=== PATIENT | female | born 1940 | race Caucasian/White ===

== ENCOUNTER → 2016-04-29 | Outpatient (REF) | payer MEDICARE ==
[2016-04-29 18:01] LABS: ALBUMIN 3.9 GM/DL (3.2-5.2); ALBUMIN/GLOBULIN RATIO 1.34 (1.00-1.93); ALKALINE PHOSPHATASE 142 U/L (45-117); ALT/SGPT 42 U/L (12-78); ANION GAP 10 MEQ/L (8-16); AST/SGOT 27 U/L (15-37); BASO % 0.5 % (0.0-1.0); BILIRUBIN,TOTAL 0.4 MG/DL (0.2-1.0); BLOOD UREA NITROGEN 20 MG/DL (7-18); CALCIUM LEVEL 10.9 MG/DL (8.8-10.2); CARBON DIOXIDE LEVEL 27 MEQ/L (21-32); CHLORIDE LEVEL 108 MEQ/L (98-107); EOS # 0.2 K/mm3 (0.0-0.50); EOS % 3.1 % (0.0-3.0); FREE T4 1.04 NG/DL (0.76-1.46); GLOMERULAR FILTRATION RATE > 60.0 (>39); GLUCOSE, FASTING 106 MG/DL (83-110); LARGE UNSTAINED CELL # 0.1 K/mm3 (0.0-0.4); LARGE UNSTAINED CELL % 1.7 % (0.0-4.0); LYMPH # 1.7 K/mm3 (1.5-4.5); LYMPH % 20.6 % (24.0-44.0); MEAN CORPUSCULAR HEMOGLOBIN 30.6 pg (27.0-33.0); MEAN CORPUSCULAR HGB CONC 33.6 g/dl (32.0-36.5); MEAN CORPUSCULAR VOLUME 91.2 fl (80.0-96.0); MONO # 0.6 K/mm3 (0.0-0.8); MONO % 6.6 % (0.0-5.0); NEUTROPHILS # 5.6 K/mm3 (1.8-7.7); NEUTROPHILS % 67.6 % (36.0-66.0); PLATELET COUNT, AUTOMATED 209 k/mm3 (150-450); POTASSIUM SERUM 4.2 MEQ/L (3.5-5.1); RED CELL DISTRIBUTION WIDTH 12.6 % (11.5-14.5); SODIUM LEVEL 145 MEQ/L (136-145); TOTAL PROTEIN 6.8 GM/DL (6.4-8.2); WHITE BLOOD COUNT 8.3 K/mm3 (4.0-10.0)
== END ==
LOC: M SFHCPLAZ 15:38
PROVIDERS: ATTEND Nurse Practitioner Family
DX: R10.11 Right upper quadrant pain (principal); K59.00 Constipation, unspecified
CPT/HCPCS: 36415; 80053; 84439; 84443; 85025; 86301; G0463

== ENCOUNTER → 2016-04-30 | Outpatient (CLI) | payer MEDICARE ==
--- NOTE | 2016-04-30 10:24 | REP ---
Abdominal right upper quadrant ultrasound: There are no comparison studies. There is no cholelithiasis, gallbladder wall thickening, or pericholecystic fluid. There is no intrahepatic or extrahepatic biliary duct dilatation and the common duct is long 0.2 mm in diameter. There are least to six nodular densities in the liver, some of these are along the anterior capsule and are slightly exophytic. These are nonspecific as there are no comparison studies to document stability, however, the multiplicity of lesions raises the suspicion of metastatic disease. Hepatic MRI might be considered for further evaluation. There is a hypoechoic mass in the body of the pancreas measuring up to 4.5 cm. Consider pancreatic MRI for further evaluation. There is no right renal calculus, hydronephrosis, cyst or mass. The right kidney is normal size 9.1 cm in craniocaudad length. Impression: There is a hypoechoic mass in the body of the pancreas measuring up to 4.5 cm. Consider pancreatic MRI for follow up. There are multiple liver nodules, at least six. Primary diagnostic consideration is metastatic disease. Consider hepatic MRI. Given the multiplicity of findings, also consider PET / CT scan.
== END ==
LOC: M WHC 08:37
PROVIDERS: ATTEND Nurse Practitioner Family
DX: K86.89 Other specified diseases of pancreas (principal); K76.9 Liver disease, unspecified
CPT/HCPCS: 76705; G0463

== ENCOUNTER → 2016-05-04 | Outpatient (CLI) | payer MEDICARE ==
--- NOTE | 2016-05-04 15:37 | REP ---
MR ABDOMEN WITH AND WITHOUT CONTRAST: TECHNIQUE: Coronal T2, T2 FS, axial T1, T2, T2 FS, in phase, out of phase, T1 FS, dynamic post IV gadolinium axial T1 FS with the intravenous administration of 17 mL gadolinium. There are multiple innumerable liver lesions present which are hypointense on T1 and heterogeneous hyperintense on T2. They all demonstrate ring enhancement and are compatible with metastatic lesions throughout the liver. The spleen is normal in size without no intrinsic abnormality. The adrenal glands are unremarkable. There is a large mass in the body of the pancreas. The mass is heterogeneously low in signal on T1-weighted images. A portion is heterogeneously high in signal on T2-weighted images. There is heterogeneous enhancement with a cystic component on the left side of the mass which does not significantly enhance. There is dilatation of the pancreatic duct in the region of the tail of the pancreas. There appear to be tiny cysts in both kidneys without hydronephrosis. I see no significant adenopathy in the abdomen. I see no free fluid. IMPRESSION: Large mass in the body of the pancreas demonstrates heterogeneous enhancement and there is dilatation of the pancreatic duct in the region of the tail of the pancreas. There are multiple metastatic lesions seen throughout the liver. The largest lesions are clustered in the left lobe at the superior aspect of the liver, with the largest discrete lesion measuring 4.3 cm in diameter. Signed by Car Fernandes MD 05/05/2016 09:25 A
== END ==
LOC: M RAD 13:49
PROVIDERS: ATTEND Nurse Practitioner Family
DX: K86.9 Disease of pancreas, unspecified (principal); K76.89 Other specified diseases of liver
CPT/HCPCS: 74183; A9576

== ENCOUNTER → 2016-05-25 | Outpatient (REF) | payer MEDICARE ==
[~2016-05-25] MED LIST: ALEV220T26 PO; ASPI1TAB PO; CALC600T57 PO; COPP2TAB PO; FLAX100012 PO; FLON1SPR; LUTE20TA PO; METACAP2 PO; OMEP40CA2 PO; PRAV40TA PO; TOPR25TA PO; VITA500S3 SL; ZINCLOZ9 PO; ZOLO50TA PO
[2016-05-25 14:24] LABS: INR 0.93
== END ==
LOC: M LAB REF 12:47
PROVIDERS: ATTEND Internal Medicine Medical Oncology
DX: C25.9 Malignant neoplasm of pancreas, unspecified (principal); Z79.01 Long term (current) use of anticoagulants

== ENCOUNTER → 2016-05-27 | Day surgery (SDC) | payer MEDICARE ==
[~2016-05-27] MED LIST changes: +BUPIVACAINE LIPOSOME/PF 1.3% 20 ML VIAL (13.3MG/ML)(EXPAREL) As Ordered ONE; +HEPARIN SOD (PORCINE) 5000 UNITS/ML VIAL As Ordered ONE; +LIDOCAINE 1% MDV 20ML VIAL As Ordered ONE; +MIDAZOLAM INJ 2 MG/2 ML VIAL (J2250) As Ordered ONE; +MUPIROCIN 2% OINT 22 GM TUBE TOP ONE; +PROPOFOL 200 MG/20 ML VIAL As Ordered ONE; +VANCOMYCIN HCL 1,000 MG, VIAL MATE ADAPTER 1 EACH in D5W 250 ML IV ONE; +fentaNYL 100 MCG/2 ML INJECTION (J3010) As Ordered ONE
[2016-05-27 15:15] VITALS: BP 150/74
--- NOTE | 2016-05-27 15:26 | REP ---
Chest x-ray: Two Sitting AP views. History: Postop. Comparison chest x-ray April 27, 2007. Findings: There is a left subclavian vein Xvndwg-R-Aeyu catheter with its tip in the expected location of the superior vena cava. The lungs are well inflated and clear. There is no evidence of pneumothorax or hydrothorax. Heart size is normal. Impression: Left subclavian Dgttjb-A-Gyot catheter in place. No complication is identified. Signed by Casa Sharma MD 05/27/2016 03:18 P
--- NOTE | 2016-05-27 16:07 | REP ---
Chest x-ray: Partial study two views:. History: Abnormal x-ray. Findings: A sequence of two fluoroscopically obtained last image hold spot radiographs of the chest document Ptqwvs-D-Szxk catheter placement. 41 seconds of fluoroscopy time is reported. Signed by Casa Sharma MD 05/27/2016 05:45 P
--- NOTE | 2016-05-27 17:03 | ECGEPIP ---
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
--- NOTE | 2016-05-28 12:26 | RO ---
DATE OF PROCEDURE: 05/27/2016 PREPROCEDURE DIAGNOSIS: Pancreatic cancer, need for vascular access for chemotherapy. POSTPROCEDURE DIAGNOSIS: Pancreatic cancer, need for vascular access for chemotherapy. PROCEDURE: Insertion of left infraclavicular Mffcsp-O-Msnz. SURGEON: Dr. Betito Luna. EMPLOYEE RELATIONS ADVISOR: ANESTHESIA: ESTIMATED BLOOD LOSS: FINDINGS: All contours were all smooth. The catheter was placed at the junction of the SVC and right atrium. It did take two Evukkl-T-Hzvd packs to finish the procedure as during the suturing of the first Vjzovy-O-Rkeg, the catheter pulled back significantly so that I was concerned that because of her obesity that she would pull the catheter out once the breast was dependent. Therefore, we threaded the catheter and did another tunnel and finally put the port in. PROCEDURE: Under satisfactory MAC anesthesia, the patient was prepped and draped in usual sterile fashion. The left infraclavicular fossa was located and infiltrated with 1% Xylocaine. The subclavian vein was found on the first pass and a wire was placed and its position confirmed with fluoroscopic control. An incision was made approximately 2 cm below the catheter site incision and a subcutaneous pocket was developed both with sharp and blunt dissection including electrocautery. She was very, very obese with fatty tissue which seemed much more greasy than normal. The catheter port was incised and tract was dilated and a catheter was placed at the superior vena cava right atrial junction. A tunnel was then created and the catheter was cut to appropriate size, collar placed and connected to the Aykshe-G-Zkut. Qofzwv-B-Ulpr was then attempted to be sutured into the pocket. Because of the adipose tissue, it was proved to be rather difficult and during attempted suturing and anchoring, the catheter pulled out approximately two inches. X-ray control of the catheter placement showed it to be at the junction of the innominate vein and the SVC. I was very concerned that once the breast was dependent, that even if I placed the port and sutured it in, that it would pull out. Therefore, the catheter was removed from the port, the port was also removed and brought back through the original catheter incision. A wire was placed through it and another catheter was placed under fluoroscopic control. This too was placed at the junction of the right atrium and SVC. Again a tunnel was created and the catheter pulled through. This again was connected to the port after placing a collar and the port was anchored with two #2-0 silk sutures. Final pictures showed all contours to be smooth with the catheter in the proper position. The catheter was flushed with heparinized saline and with a final flush of saline of 100 units/mL. The subcutaneous tissue was then closed with running #3-0 Vicryl suture and the skin was closed with running #4-0 Monocryl subcuticular suture. The patient tolerated the procedure well and left the operating room in satisfactory position to the recovery room. YAYA
== END | disposition home or self-care (01) ==
LOC: M SDC 10:51
PROVIDERS: ATTEND Thoracic Surgery (Cardiothoracic Vascular Surgery)
DX: C25.9 Malignant neoplasm of pancreas, unspecified (principal); E78.00 Pure hypercholesterolemia, unspecified; E78.5 Hyperlipidemia, unspecified; I10 Essential (primary) hypertension; K21.9 Gastro-esophageal reflux disease without esophagitis; Z88.0 Allergy status to penicillin; Z88.2 Allergy status to sulfonamides; Z88.5 Allergy status to narcotic agent; Z88.8 Allergy status to other drugs, medicaments and biological substances; Z79.899 Other long term (current) drug therapy
CPT/HCPCS: 36415; 36561; 71010; 76000; 81001; 86850; 86900; 86901; 93005; C1788; J2250; J3010; J3370

== ENCOUNTER → 2016-06-04 | Outpatient (CLI) | payer MEDICARE ==
[~2016-06-04] MED LIST changes: -BUPIVACAINE LIPOSOME/PF 1.3% 20 ML VIAL (13.3MG/ML)(EXPAREL) As Ordered ONE; -HEPARIN SOD (PORCINE) 5000 UNITS/ML VIAL As Ordered ONE; -LIDOCAINE 1% MDV 20ML VIAL As Ordered ONE; -MIDAZOLAM INJ 2 MG/2 ML VIAL (J2250) As Ordered ONE; -MUPIROCIN 2% OINT 22 GM TUBE TOP ONE; -PROPOFOL 200 MG/20 ML VIAL As Ordered ONE; -VANCOMYCIN HCL 1,000 MG, VIAL MATE ADAPTER 1 EACH in D5W 250 ML IV ONE; -fentaNYL 100 MCG/2 ML INJECTION (J3010) As Ordered ONE
--- NOTE | 2016-06-04 15:29 | REP ---
PA and lateral chest: Comparisons are 05/27/2016 and 04/27/2007. There is an incomplete inspiratory effort. The lung woodall are clear. Cardiac size is normal. The yadira, mediastinum, and bony thorax are unremarkable. There is a right IJ Ehyfln-J-Bonr catheter with the tip at the confluence of the superior vena cava and innominate vein in satisfactory location, unchanged from 05/27/2016. Impression: There are no acute cardiopulmonary findings. No masses. Signed by Car Resendiz MD 06/04/2016 03:20 P
== END ==
LOC: M SMT 12:56
PROVIDERS: ATTEND Thoracic Surgery (Cardiothoracic Vascular Surgery)
DX: C25.3 Malignant neoplasm of pancreatic duct (principal); Z01.818 Encounter for other preprocedural examination

== ENCOUNTER → 2016-06-29 | Outpatient (REF) | payer MEDICARE | LOC: M LAB REF 12:55 | PROVIDERS: ATTEND Internal Medicine Medical Oncology | DX: C25.9 Malignant neoplasm of pancreas, unspecified (principal) ==

== ENCOUNTER → 2016-07-28 | Outpatient (CLI) | payer MEDICARE ==
[~2016-07-28] MED LIST changes: +ISOVUE-370 76% 100ML VIAL (Q9967) As Ordered ONE
--- NOTE | 2016-07-28 11:02 | REP ---
CT ANGIOGRAM OF THE CHEST: TECHNIQUE: Axial contrast enhanced images from the thoracic inlet to the upper abdomen using 100 mL Isovue 370 intravenous contrast material with multiplanar reformations. There is no CT evidence of a pulmonary embolism. Mild scattered atherosclerotic calcifications are seen of the thoracic aorta. There is no aneurysm or dissection. Normal sized mediastinal and hilar lymph nodes are present. There is no pleural or pericardial effusion. Patchy scattered infiltrates are seen throughout both lungs. In the visualized portions of the upper abdomen there are multiple liver nodules present compatible with metastases. A mass is again seen in the body of the pancreas. IMPRESSION: No CT evidence of pulmonary embolism. No pleural or pericardial effusion. Patchy infiltrates scattered throughout both lungs. Signed by Car Fernandes MD 07/28/2016 04:07 P
== END ==
LOC: M RAD 09:59
PROVIDERS: ATTEND Nurse Practitioner Family
DX: R06.00 Dyspnea, unspecified (principal); C25.9 Malignant neoplasm of pancreas, unspecified; R91.8 Other nonspecific abnormal finding of lung field
CPT/HCPCS: 71275; 86301; Q9967

== ENCOUNTER → 2016-07-28 | Outpatient (REF) | payer MEDICARE ==
[~2016-07-28] MED LIST changes: -ISOVUE-370 76% 100ML VIAL (Q9967) As Ordered ONE
== END ==
LOC: M LAB REF 13:30
PROVIDERS: ATTEND Internal Medicine Medical Oncology
DX: C25.9 Malignant neoplasm of pancreas, unspecified (principal)

== ENCOUNTER → 2016-08-11 | Outpatient (REF) | payer MEDICARE | LOC: M LAB REF 12:32 | PROVIDERS: ATTEND Internal Medicine Medical Oncology | DX: C25.9 Malignant neoplasm of pancreas, unspecified (principal) ==

== ENCOUNTER → 2016-08-25 | Outpatient (REF) | payer MEDICARE | LOC: M LAB REF 13:07 | PROVIDERS: ATTEND Internal Medicine Medical Oncology | DX: C25.9 Malignant neoplasm of pancreas, unspecified (principal) ==

== ENCOUNTER → 2016-09-08 | Outpatient (REF) | payer MEDICARE | LOC: M LAB REF 12:32 | PROVIDERS: ATTEND Internal Medicine Medical Oncology | DX: C25.9 Malignant neoplasm of pancreas, unspecified (principal) ==

== ENCOUNTER → 2016-09-21 | Outpatient (REF) | payer MEDICARE | LOC: M LAB REF 12:29 | PROVIDERS: ATTEND Internal Medicine Medical Oncology | DX: C25.1 Malignant neoplasm of body of pancreas (principal) ==

== ENCOUNTER → 2016-10-12 | Outpatient (CLI) | payer MEDICARE ==
[~2016-10-12] MED LIST changes: +GASTROGRAFIN SOLUTION 30ML (Q9963) As Ordered ONE; +ISOVUE-370 76% 100ML VIAL (Q9967) As Ordered ONE
--- NOTE | 2016-10-12 16:43 | REP ---
REASON: History of pancreatic carcinoma. COMPARISON: 07/28/2016. CONTRAST: 100 mL Isovue-370. The mediastinal and pulmonary yadira are unchanged. There is no mass or adenopathy. There are no pleural or pericardial effusions. The imaged upper abdomen again shows a pancreatic mass. A few low density areas are suspected in the hepatic parenchyma difficulty to evaluate on this chest CT. Lung window technique throughout the exam shows no change in appearance of the osseous structures. Evaluation of the lung woodall show an asymmetric somewhat spiculated 9 mm sized nodule in the right upper lobe previously masked by patchy opacities throughout the lung woodall. The aforementioned opacities have resolved which has enabled this lesion to be brought to light. There is an unchanged pneumatocele in the inferior lingula. A few scattered fibrotic changes are suspected throughout the lung woodall. Status quo. IMPRESSION:1. Asymmetric somewhat spiculated right upper lobe lung nodule as described above. A metastatic lesion can not be ruled out. 2. Chronic lung field changes but with some improvement from the prior exam as described above. 3. Known pancreatic mass again imaged on this chest CT. 4. Possible hepatic metastatic disease. 5. Other findings as described above. Signed by Ramy Rod DO 10/12/2016 07:09 P
--- NOTE | 2016-10-12 17:16 | REP ---
HISTORY: Pancreatic mass. COMPARISON: None. CONTRAST: 100 mL Isovue-370. The precontrast enhanced portion of the examination shows a few low density lesions in the hepatic parenchyma, particularly in the lateral segment of the left lobe. There is no nephroureterolithiasis. There are no choleliths. The contrast-enhanced portion of the examination shows potentially subtly peripherally enhancing lesions in the lateral segment of the left lobe of the liver in an area very difficult to evaluate by CT due to volume averaging. The largest measures approximately 1.6 cm. A third tiny focal area of low density is seen in the posterior segment of the right lobe with possible slight peripheral enhancement. The gallbladder is unremarkable. The spleen is within normal limits. The adrenal glands are universally mildly thickened. There are no enhancing renal lesions. The abdominal aorta and paraaortic regions are within normal limits. In the pancreatic body, there is a mildly peripherally enhancing mass which measures 2 cm and seen with proximal ductal dilatation in the pancreatic tail region. There is no evidence of peripancreatic adenopathy. There is no free fluid or free air in the abdomen. The bowel loops are within normal limits. CT PELVIS: The bowel loops are within normal limits. There is no free fluid or free air. There is no pelvic adenopathy. A potential mass is seen arising from the uterine body, possibly related to uterine myomatous change. This cannot be well evaluated by CT. Bone window technique throughout the exam shows spinal degenerative changes. IMPRESSION: 1. There is a pancreatic mass with the related findings as described above. 2. Lesions in the liver as described above. Early metastatic disease cannot be ruled out. Followup with gadolinium enhanced hepatic MRI is recommended. 3. Chronic appearing adrenal gland thickening. 4. Possible uterine myomatous change. Correlate with pelvic ultrasonography. 5. Other findings as described above. Signed by Ramy Rod DO 10/12/2016 07:09 P
== END ==
LOC: M RAD 13:27
PROVIDERS: ATTEND Internal Medicine Medical Oncology
DX: C25.9 Malignant neoplasm of pancreas, unspecified (principal); K76.9 Liver disease, unspecified
CPT/HCPCS: 71260; 74178; Q9963; Q9967

== ENCOUNTER → 2016-10-19 | Outpatient (REF) | payer MEDICARE ==
[~2016-10-19] MED LIST changes: -GASTROGRAFIN SOLUTION 30ML (Q9963) As Ordered ONE; -ISOVUE-370 76% 100ML VIAL (Q9967) As Ordered ONE
== END ==
LOC: M LAB REF 13:24
PROVIDERS: ATTEND Internal Medicine Medical Oncology
DX: C25.9 Malignant neoplasm of pancreas, unspecified (principal)

== ENCOUNTER → 2016-11-16 | Outpatient (REF) | payer MEDICARE | LOC: M LAB REF 09:49 | PROVIDERS: ATTEND Internal Medicine Medical Oncology | DX: C25.9 Malignant neoplasm of pancreas, unspecified (principal) ==

== ENCOUNTER → 2016-11-26 | Outpatient (CLI) | payer MEDICARE ==
[~2016-11-26] MED LIST changes: +GASTROGRAFIN SOLUTION 30ML (Q9963) As Ordered ONE; +ISOVUE-370 76% 100ML VIAL (Q9967) As Ordered ONE
--- NOTE | 2016-11-30 09:11 | REP ---
Clinical: Pancreatic cancer with rising tumor markers. Technique: Axial contrast enhanced images from the thoracic inlet to the upper abdomen using 100 ml Isovue 370 intravenous contrast material with coronal and sagittal re-formations. Comparison: 07/28/2016. Findings: The bilateral lung woodall are well-aerated and few, small ill-defined areas of density are scattered throughout the bilateral hemithoraces including 13 mm density in the medial right upper lobe inseparable from the mediastinum (image 35). In comparison to prior examination these findings may represent sequelae of prior multifocal pneumonic process and warrant reevaluation to assess for resolution versus possible metastatic foci. No pleural effusion. No pneumothorax. Mediastinum demonstrates atherosclerotic changes to the thoracic aorta and coronary arteries without aortic dissection or cardiomegaly and no pericardial effusion. No obvious adenopathy appreciated. Surrounding musculoskeletal structures are normal. Limited evaluation of the upper abdomen continues to demonstrate multiple hepatic lesions including large hypodense lesion in the left lobe of the liver. Small hiatal hernia is identified. Impression: 1. Small scattered noncalcified densities measure up to 13 mm. Findings may represent sequelae of prior multifocal pneumonia versus metastatic disease. Continued follow-up in 3 months may be warranted. 2. No adenopathy or effusion. 3. Atherosclerotic changes to the thoracic aorta and coronary arteries. 4. Upper abdomen demonstrates scattered low density changes throughout the liver similar to 07/28/2016 and consistent with metastatic disease. Signed by Huang Sweeney MD 11/30/2016 09:02 A
--- NOTE | 2016-11-30 09:30 | REP ---
Clinical: Pancreatic cancer with rising tumor markers. Technique: Axial contrast enhanced images from the lung bases to the pubic symphysis using oral and 100 ml Isovue 370 intravenous contrast material with precontrast and delayed images of the abdomen as well as coronal and sagittal re-formations. Comparison: 10/12/2016. Findings: Lung bases demonstrate a 2.5 cm bulla in the lingula as well as 2 mm subpleural noncalcified nodule in the periphery of the right lower lobe (image 1). Visualized portions of the heart and pericardium are normal. The liver demonstrates increased size and multiple new ill-defined hypodense areas within the left lobe of the liver measuring roughly up to 4 cm diameter as well as few new hypodense lesions in the left lobe measuring roughly up to 1.9 cm. The low density lesion within the mid body of the pancreas remains relatively unchanged and measures approximately 2 cm maximal diameter. Spleen, collapsed gallbladder, bilateral adrenal glands and kidneys are normal / stable. The enteric system is without obstruction or acute inflammatory process and a normal terminal ileum and appendix are identified in the right lower quadrant. Pelvis demonstrates normal bladder and heterogeneous enlarged appearance to the uterus which is similar to prior examination and may reflect mass or exophytic fibroid measuring 5 cm maximal diameter inseparable from the anterior fundal region. No ascites. No obvious significant adenopathy. No free air. Atherosclerotic changes to the vasculature without aneurysm or dissection. Musculoskeletal structures demonstrate degenerative changes without focal osseous abnormality. Impression: 1. Low density pancreatic lesion is essentially unchanged. 2. Discrete and somewhat heterogeneous infiltrating lesions within the left lobe of the liver as well as scattered hyperdense subtle lesions in the right lobe appear increased from prior examination. 3. Pelvic mass may represent exophytic uterine fibroid and warrants pelvic ultrasound correlation. Signed by Huang Sweeney MD 11/30/2016 09:22 A
== END ==
LOC: M RAD 16:16
PROVIDERS: ATTEND Nurse Practitioner Family
DX: C25.9 Malignant neoplasm of pancreas, unspecified (principal)
CPT/HCPCS: 71260; 74178; Q9963; Q9967

== ENCOUNTER → 2016-12-08 | Outpatient (REF) | payer MEDICARE ==
[~2016-12-08] MED LIST changes: -GASTROGRAFIN SOLUTION 30ML (Q9963) As Ordered ONE; -ISOVUE-370 76% 100ML VIAL (Q9967) As Ordered ONE
== END ==
LOC: M LAB REF 17:24
PROVIDERS: ATTEND Internal Medicine Medical Oncology
DX: C25.9 Malignant neoplasm of pancreas, unspecified (principal)

== ENCOUNTER → 2016-12-22 | Outpatient (REF) | payer MEDICARE | LOC: M LAB REF 14:34 | PROVIDERS: ATTEND Internal Medicine Medical Oncology | DX: C25.9 Malignant neoplasm of pancreas, unspecified (principal) ==

== ENCOUNTER → 2017-01-12 | Outpatient (REF) | payer MEDICARE | LOC: M LAB REF 16:36 | PROVIDERS: ATTEND Internal Medicine Medical Oncology | DX: C25.9 Malignant neoplasm of pancreas, unspecified (principal) ==

== ENCOUNTER → 2017-02-04 | Outpatient (REF) | payer MEDICARE ==
[2017-02-04 12:29] LABS: FOLATE 8.3 NG/ML; VITAMIN B12 LEVEL > 2000 PG/ML
[2017-02-04 12:32] LABS: ALBUMIN 3.7 GM/DL (3.2-5.2); ALBUMIN/GLOBULIN RATIO 1.37 (1.00-1.93); ALKALINE PHOSPHATASE 138 U/L (45-117); ALT/SGPT 31 U/L (12-78); ANION GAP 8 MEQ/L (8-16); AST/SGOT 22 U/L (7-37); BILIRUBIN,TOTAL 0.6 MG/DL (0.2-1.0); BLOOD UREA NITROGEN 25 MG/DL (7-18); CALCIUM LEVEL 9.2 MG/DL (8.8-10.2); CARBON DIOXIDE LEVEL 28 MEQ/L (21-32); CHLORIDE LEVEL 106 MEQ/L (98-107); CHOLESTEROL LEVEL 215 MG/DL (<200); CREATININE FOR GFR 0.78 MG/DL (0.55-1.02); FREE T4 1.02 NG/DL (0.76-1.46); GLOMERULAR FILTRATION RATE > 60.0 (>39); GLUCOSE, FASTING 70 MG/DL (83-110); MAGNESIUM LEVEL 2.2 MG/DL (1.8-2.4); POTASSIUM SERUM 3.9 MEQ/L (3.5-5.1); SODIUM LEVEL 142 MEQ/L (136-145); TOTAL PROTEIN 6.4 GM/DL (6.4-8.2); TRIGLYCERIDES LEVEL 187 MG/DL (<150)
== END ==
LOC: M SFHCPLAZ 08:11
PROVIDERS: ATTEND Family Medicine
DX: I10 Essential (primary) hypertension (principal); E04.2 Nontoxic multinodular goiter; E78.2 Mixed hyperlipidemia; K21.9 Gastro-esophageal reflux disease without esophagitis; M85.80 Other specified disorders of bone density and structure, unspecified site; E53.8 Deficiency of other specified B group vitamins

== ENCOUNTER → 2017-02-16 | Outpatient (REF) | payer MEDICARE | LOC: M LAB REF 17:33 | PROVIDERS: ATTEND Internal Medicine Medical Oncology | DX: C25.9 Malignant neoplasm of pancreas, unspecified (principal) ==

== ENCOUNTER → 2017-03-01 | Outpatient (CLI) | payer MEDICARE ==
--- NOTE | 2017-03-01 13:16 | REPMRS ---
Patient History The patient states she has not had a clinical breast exam in over a year. Patient is postmenopausal, had previous chemotherapy at age 76, has history of pancreatic cancer at age 75, and is nulliparous. Family history of breast cancer in sister at age 50 or over. Digital Woman Screen Mammo: March 01, 2017 - Exam #: [id number] Bilateral CC and MLO view(s) were taken. Technologist: Sophy Ownes, Technologist Prior study comparison: February 27, 2016, digital woman screen mammo performed at [facility]. December 13, 2014, digital woman screen mammo performed at [facility]. FINDINGS: There are scattered fibroglandular densities. There has been no change in the appearance of the mammogram from the prior studies. There is a mild amount of residual fibroglandular tissue which is fairly symmetric. There is no interval development of dominant mass, architectural distortion, or clustered microcalcification suggestive of malignancy. ASSESSMENT: BI-RADS/ACR category 1 mammogram. Negative. Recommendation Routine screening mammogram in 1 year (for women over age 40). This mammogram was interpreted with the aid of an FDA-approved computer-aided dectection system. Electronically Signed By: Car Fernandes MD 03/01/17 2018
== END ==
LOC: M WHC 12:30
PROVIDERS: ATTEND Family Medicine
DX: Z12.31 Encounter for screening mammogram for malignant neoplasm of breast (principal); Z80.3 Family history of malignant neoplasm of breast; Z78.0 Asymptomatic menopausal state

== ENCOUNTER → 2017-03-03 | Outpatient (REF) | payer MEDICARE | LOC: M LAB REF 16:28 | PROVIDERS: ATTEND Internal Medicine Medical Oncology | DX: C25.9 Malignant neoplasm of pancreas, unspecified (principal) ==

== ENCOUNTER → 2017-03-10 | Outpatient (CLI) | payer MEDICARE ==
[~2017-03-10] MED LIST changes: +GASTROGRAFIN SOLUTION 30ML (Q9963) As Ordered ONE; +ISOVUE-370 76% 100ML VIAL (Q9967) As Ordered ONE
--- NOTE | 2017-03-10 19:10 | REP ---
CT CHEST WITH IV CONTRAST: TECHNIQUE: Axial contrast enhanced images from the thoracic inlet to the upper abdomen using 100 mL Isovue 370 intravenous contrast material with multiplanar reformations. COMPARISON: 11/26/2016 There are multiple bilateral nodular densities in the lungs. A 4 mm nodular density in the right upper lobe on image 18 is unchanged. Paramediastinal soft tissue opacity is somewhat triangular in shape and has decreased since prior study located on image 36. There is a nodule in the right middle lobe which is stable on image 47. There is a new 4 mm nodule in the right middle lobe on image 57. There are three subcentimeter nodular densities in the right lower lobe which have either not changed or have decreased in size. There are two new subcentimeter nodular opacities in the right lower lobe, posterolaterally on image 64 and in the posterior costophrenic sulcus on image 82. A stable ill-defined irregular nodule in the left upper lobe on image 30 is unchanged. Another stable nodule is seen in the left lower lobe on image 58. Two new upper lobe nodules are seen on image 40 and 44 and there are six new subcentimeter nodules in the left lower lobe. There is a 6 mm pericardial lymph node anteriorly on the right. No significant mediastinal or hilar adenopathy is seen. Heart is not enlarged. There is no pleural or pericardial effusion. IMPRESSION: Multiple bilateral pulmonary nodules present. A few have decreased in size. Some are stable. There are several new nodules present bilaterally. There is a 6 mm right pericardial lymph node. Signed by Car Fernandes MD 03/11/2017 08:29 P
--- NOTE | 2017-03-10 19:29 | REP ---
CT ABDOMEN AND PELVIS WITH AND WITHOUT CONTRAST: TECHNIQUE: Axial noncontrast images through the abdomen followed by contrast-enhanced images through the abdomen and pelvis using 100 mL Isovue 370 intravenous contrast material, with coronal and sagittal reformations. COMPARISON: 11/26/2016 and 10/12/2016. Once again there are multiple masses in the liver, these have slightly increased in size since the most recent exam of 11/26/2016, the largest confluent mass is in the left lobe superiorly. Maximum transverse diameter is approximately 8.9 cm in AP dimension 5.2. A separate nodule is seen just anterior to this dominant lesion, also mildly increased in size. There are two small nodules in the superior right lobe, two small nodules more inferiorly in the right lobe and a nodule in the inferior left lobe. Spleen is now noted to be enlarged with a length of 15.7 cm. No focal lesion is seen in the spleen. The adrenal glands appear unremarkable and unchanged. Low density nodule in the body of the pancreas is stable. Kidneys are unremarkable. There is moderate arthrosclerotic calcification of the abdominal aorta without aneurysm. There is a mildly enlarged aortocaval lymph node 1.2 cm in diameter at the level of the superior aspect of the pancreas. No other significant adenopathy is seen. No free air or free fluid is seen. There is no bowel wall thickening. Pelvic structures are unchanged. There is no new pelvic mass, urinary bladder is mildly distended with no gross abnormality. IMPRESSION: Continued increase in size of multiple liver nodules. There is splenomegaly. No change in the low density nodule in the body of the pancreas. Mildly enlarged lymph node in the aortocaval region at the superior margin of the pancreas. Signed by Car Fernandes MD 03/11/2017 08:30 P
== END ==
LOC: M RAD 08:35
PROVIDERS: ATTEND Internal Medicine Medical Oncology
DX: C25.9 Malignant neoplasm of pancreas, unspecified (principal)
CPT/HCPCS: 71260; 74178; Q9963; Q9967

== ENCOUNTER → 2017-03-17 | Outpatient (REF) | payer MEDICARE | LOC: M LAB REF 14:21 | DX: C25.9 Malignant neoplasm of pancreas, unspecified (principal) | CPT/HCPCS: 86301 ==

== ENCOUNTER → 2017-03-23 | Outpatient (REF) | payer MEDICARE ==
[2017-03-23 13:54] LABS: CA19-9 TUMOR MARKER,CARBOHYDRA 22595.5 U/ML (<35.0)
== END ==
LOC: M LAB REF 11:51
DX: C25.9 Malignant neoplasm of pancreas, unspecified (principal)
CPT/HCPCS: 86301

== ENCOUNTER → 2017-04-02 | Outpatient (REF) | payer MEDICARE ==
[2017-04-02 16:42] LABS: VITAMIN B12 LEVEL > 2000 PG/ML
[2017-04-03 15:15] LABS: Lyme Disease IgG/IgM Antibodie <0.91 ISR (0.00-0.90); Lyme Disease IgM Ab Quantitati <0.80 index (0.00-0.79)
== END ==
LOC: M SFHCPLAZ 09:46
DX: E53.8 Deficiency of other specified B group vitamins (principal); W57.XXXD Bitten or stung by nonvenomous insect and other nonvenomous arthropods, subsequent encounter
CPT/HCPCS: 82746

== ENCOUNTER → 2017-04-20 | Outpatient (REF) | payer MEDICARE | LOC: M LAB REF 13:20 | DX: C25.9 Malignant neoplasm of pancreas, unspecified (principal) | CPT/HCPCS: 86301 ==

== ENCOUNTER → 2017-05-03 | Outpatient (REF) | payer MEDICARE | LOC: M LAB REF 13:52 | DX: K90.3 Pancreatic steatorrhea (principal); C25.9 Malignant neoplasm of pancreas, unspecified | CPT/HCPCS: 86301 ==

== ENCOUNTER → 2017-05-10 | Outpatient (CLI) | payer MEDICARE ==
[~2017-05-10] MED LIST changes: -ALEV220T26 PO; -ASPI1TAB PO; -CALC600T57 PO; -COPP2TAB PO; -FLAX100012 PO; -FLON1SPR; +GASTROGRAFIN SOLUTION 30ML (Q9963) As Ordered; -GASTROGRAFIN SOLUTION 30ML (Q9963) As Ordered ONE; +ISOVUE-370 76% 100ML VIAL (Q9967) As Ordered; -ISOVUE-370 76% 100ML VIAL (Q9967) As Ordered ONE; -LUTE20TA PO; -METACAP2 PO; -OMEP40CA2 PO; -PRAV40TA PO; -TOPR25TA PO; -VITA500S3 SL; -ZINCLOZ9 PO; -ZOLO50TA PO
== END ==
LOC: M RAD 11:05
DX: C78.7 Secondary malignant neoplasm of liver and intrahepatic bile duct (principal); C25.9 Malignant neoplasm of pancreas, unspecified
CPT/HCPCS: Q9963

== ENCOUNTER → 2017-05-17 | Outpatient (REF) | payer MEDICARE ==
[2017-05-18 13:52] LABS: CA19-9 TUMOR MARKER,CARBOHYDRA 8796.5 U/ML (<35.0)
== END ==
LOC: M LAB REF 09:39
DX: C25.9 Malignant neoplasm of pancreas, unspecified (principal)
CPT/HCPCS: 86301

== ENCOUNTER → 2017-06-14 | Outpatient (REF) | payer MEDICARE ==
[2017-06-15 12:52] LABS: CA19-9 TUMOR MARKER,CARBOHYDRA 4186.8 U/ML (<35.0)
== END ==
LOC: M LAB REF 13:48
DX: C25.9 Malignant neoplasm of pancreas, unspecified (principal)
CPT/HCPCS: 86301

== ENCOUNTER → 2017-06-28 | Outpatient (REF) | payer MEDICARE | LOC: M LAB REF 13:28 | DX: C25.1 Malignant neoplasm of body of pancreas (principal) | CPT/HCPCS: 86301 ==

== ENCOUNTER → 2017-07-08 | Outpatient (REF) | payer MEDICARE ==
[2017-07-08 13:44] LABS: HEMATOCRIT 43.8 % (36.0-47.0); HEMOGLOBIN 13.9 g/dl (12.0-15.5); MEAN CORPUSCULAR HEMOGLOBIN 29.9 pg (27.0-33.0); MEAN CORPUSCULAR HGB CONC 31.7 g/dl (32.0-36.5); MEAN CORPUSCULAR VOLUME 94.2 fl (80.0-96.0); PLATELET COUNT, AUTOMATED 141 10^3/uL (150-450); RED BLOOD COUNT 4.65 10^6/uL (4.00-5.40); RED CELL DISTRIBUTION WIDTH 18.2 % (11.5-14.5); WHITE BLOOD COUNT 19.2 10^3/uL (4.0-10.0)
[2017-07-08 13:54] LABS: ALBUMIN 3.9 GM/DL (3.2-5.2); ALBUMIN/GLOBULIN RATIO 1.39 (1.00-1.93); ALKALINE PHOSPHATASE 207 U/L (45-117); ALT/SGPT 23 U/L (12-78); ANION GAP 10 MEQ/L (8-16); AST/SGOT 23 U/L (7-37); BILIRUBIN,TOTAL 0.4 MG/DL (0.2-1.0); BLOOD UREA NITROGEN 11 MG/DL (7-18); CALCIUM LEVEL 10.1 MG/DL (8.8-10.2); CARBON DIOXIDE LEVEL 26 MEQ/L (21-32); CHLORIDE LEVEL 106 MEQ/L (98-107); CREATININE FOR GFR 0.82 MG/DL (0.55-1.30); GLOMERULAR FILTRATION RATE > 60.0 (>39); GLUCOSE, FASTING 90 MG/DL (70-100); SODIUM LEVEL 142 MEQ/L (136-145); TOTAL PROTEIN 6.7 GM/DL (6.4-8.2)
[2017-07-09 08:49] LABS: FOLATE > 24.0 NG/ML; TOTAL 25(OH) VITAMIN D 43.3 NG/ML (30.0-100.0); VITAMIN B12 LEVEL > 2000 PG/ML
== END ==
LOC: M SFHCPLAZ 08:21
DX: I10 Essential (primary) hypertension (principal); E53.8 Deficiency of other specified B group vitamins; E55.9 Vitamin D deficiency, unspecified
CPT/HCPCS: 82746

== ENCOUNTER → 2017-07-12 | Outpatient (REF) | payer MEDICARE ==
[2017-07-13 12:39] LABS: CA19-9 TUMOR MARKER,CARBOHYDRA 7315.5 U/ML (<35.0)
== END ==
LOC: M LAB REF 13:18
DX: C78.7 Secondary malignant neoplasm of liver and intrahepatic bile duct (principal); C25.1 Malignant neoplasm of body of pancreas; D70.1 Agranulocytosis secondary to cancer chemotherapy; T45.1X5A Adverse effect of antineoplastic and immunosuppressive drugs, initial encounter; E83.52 Hypercalcemia
CPT/HCPCS: 86301

== ENCOUNTER → 2017-08-09 | Outpatient (REF) | payer MEDICARE ==
[2017-08-10 12:03] LABS: CA19-9 TUMOR MARKER,CARBOHYDRA 7570.1 U/ML (<35.0)
== END ==
LOC: M LAB REF 17:44
DX: C78.7 Secondary malignant neoplasm of liver and intrahepatic bile duct (principal); C25.1 Malignant neoplasm of body of pancreas; D70.1 Agranulocytosis secondary to cancer chemotherapy; T45.1X5A Adverse effect of antineoplastic and immunosuppressive drugs, initial encounter; E83.52 Hypercalcemia
CPT/HCPCS: 86301

== ENCOUNTER → 2017-08-12 | Outpatient (CLI) | payer MEDICARE | LOC: M RAD 11:23 | DX: C25.9 Malignant neoplasm of pancreas, unspecified (principal); R91.8 Other nonspecific abnormal finding of lung field; C78.7 Secondary malignant neoplasm of liver and intrahepatic bile duct | CPT/HCPCS: Q9963 ==

== ENCOUNTER → 2017-08-23 | Outpatient (REF) | payer MEDICARE ==
[2017-08-24 14:31] LABS: CA19-9 TUMOR MARKER,CARBOHYDRA 9357.1 U/ML (<35.0)
== END ==
LOC: M LAB REF 14:27
DX: C78.7 Secondary malignant neoplasm of liver and intrahepatic bile duct (principal); C25.1 Malignant neoplasm of body of pancreas; D70.1 Agranulocytosis secondary to cancer chemotherapy; T45.1X5A Adverse effect of antineoplastic and immunosuppressive drugs, initial encounter; E83.52 Hypercalcemia
CPT/HCPCS: 86301

== ENCOUNTER → 2017-09-01 | Outpatient (CLI) | payer MEDICARE | LOC: M RAD 10:36 | DX: S05.11XA Contusion of eyeball and orbital tissues, right eye, initial encounter (principal); H05.221 Edema of right orbit; W19.XXXA Unspecified fall, initial encounter; Y93.H2 Activity, gardening and landscaping; Y92.9 Unspecified place or not applicable | CPT/HCPCS: 70450 ==

== ENCOUNTER → 2017-09-06 | Outpatient (REF) | payer MEDICARE ==
[2017-09-07 10:01] LABS: CA19-9 TUMOR MARKER,CARBOHYDRA 14015.8 U/ML (<35.0)
== END ==
LOC: M LAB REF 10:25
DX: C25.1 Malignant neoplasm of body of pancreas (principal); D70.1 Agranulocytosis secondary to cancer chemotherapy; E83.52 Hypercalcemia; T45.1X5A Adverse effect of antineoplastic and immunosuppressive drugs, initial encounter
CPT/HCPCS: 86301

== ENCOUNTER → 2017-10-05 | Outpatient (REF) | payer MEDICARE ==
[2017-10-05 13:23] LABS: INR 1.04; PROTHROMBIN TIME 13.7 SECONDS (12.1-14.4)
[2017-10-05 13:24] LABS: PARTIAL THROMBOPLASTIN TIME 30.3 SECONDS (25.4-37.6)
[2017-10-05 13:29] LABS: BILIRUBIN,DIRECT 0.2 MG/DL (0.0-0.2)
[2017-10-07 15:47] LABS: CA19-9 TUMOR MARKER,CARBOHYDRA 15252.8 U/ML (<35.0)
== END ==
LOC: M LAB REF 12:59
DX: C78.7 Secondary malignant neoplasm of liver and intrahepatic bile duct (principal); C25.1 Malignant neoplasm of body of pancreas; D70.1 Agranulocytosis secondary to cancer chemotherapy; T45.1X5A Adverse effect of antineoplastic and immunosuppressive drugs, initial encounter; E83.52 Hypercalcemia
CPT/HCPCS: 82248

== ENCOUNTER → 2017-10-12 | Outpatient (CLI) | payer MEDICARE ==
[~2017-10-12] MED LIST changes: -GASTROGRAFIN SOLUTION 30ML (Q9963) As Ordered; -ISOVUE-370 76% 100ML VIAL (Q9967) As Ordered; +LIDOCAINE 1% MDV 20ML VIAL As Ordered
== END ==
LOC: M RADPRO 07:21
DX: C78.7 Secondary malignant neoplasm of liver and intrahepatic bile duct (principal); Z85.07 Personal history of malignant neoplasm of pancreas; I10 Essential (primary) hypertension; E78.00 Pure hypercholesterolemia, unspecified; K21.9 Gastro-esophageal reflux disease without esophagitis; F32.9 Major depressive disorder, single episode, unspecified; Z79.899 Other long term (current) drug therapy; Z88.0 Allergy status to penicillin; Z88.5 Allergy status to narcotic agent; Z88.8 Allergy status to other drugs, medicaments and biological substances; Z88.2 Allergy status to sulfonamides; Z86.79 Personal history of other diseases of the circulatory system; Z86.39 Personal history of other endocrine, nutritional and metabolic disease
CPT/HCPCS: 47000

== ENCOUNTER 2018-01-09 14:20 | Inpatient (IN) | payer MEDICARE ==
[2018-01-09 16:11] LABS: BASO # 0.1 10^3/uL (0.0-0.2); BASO % 0.4 % (0.0-1.0); EOS # 0.2 10^3/uL (0.0-0.50); EOS % 0.7 % (0.0-3.0); HEMATOCRIT 33.3 % (36.0-47.0); HEMOGLOBIN 10.8 g/dl (12.0-15.5); IMMATURE GRANULOCYTE % 3.3 % (0-3.0); LYMPH # 1.7 10^3/uL (1.5-4.5); MEAN CORPUSCULAR HEMOGLOBIN 32.9 pg (27.0-33.0); MEAN CORPUSCULAR HGB CONC 32.4 g/dl (32.0-36.5); MEAN CORPUSCULAR VOLUME 101.5 fl (80.0-96.0); MONO # 1.8 10^3/uL (0.0-0.8); MONO % 6.3 % (0.0-5.0); NEUTROPHILS # 23.5 10^3/uL (1.8-7.7); NEUTROPHILS % 83.3 % (36.0-66.0); PLATELET COUNT, AUTOMATED 201 10^3/uL (150-450); RED BLOOD COUNT 3.28 10^6/uL (4.00-5.40); RED CELL DISTRIBUTION WIDTH 21.8 % (11.5-14.5); WHITE BLOOD COUNT 28.1 10^3/uL (4.0-10.0)
[2018-01-09 16:28] LABS: INR 1.14; PROTHROMBIN TIME 14.8 SECONDS (12.1-14.4)
[2018-01-09 16:34] LABS: LACTIC ACID SEPSIS PROTOCOL 1.5 MMOL/L (0.4-2.0)
[2018-01-09 16:43] LABS: ALBUMIN 2.4 GM/DL (3.2-5.2); ALBUMIN/GLOBULIN RATIO 0.83 (1.00-1.93); ALKALINE PHOSPHATASE 360 U/L (45-117); ALT/SGPT 35 U/L (12-78); ANION GAP 9 MEQ/L (8-16); AST/SGOT 36 U/L (7-37); BILIRUBIN,DIRECT 0.3 MG/DL (0.0-0.2); BILIRUBIN,TOTAL 0.7 MG/DL (0.2-1.0); BLOOD UREA NITROGEN 17 MG/DL (7-18); CALCIUM LEVEL 8.6 MG/DL (8.8-10.2); CARBON DIOXIDE LEVEL 25 MEQ/L (21-32); CHLORIDE LEVEL 105 MEQ/L (98-107); CK-MB VALUE MASS < 1.0 NG/ML (<3.6); CPK CREATINE PHOSPHOKINASE 31 U/L (26-192); CREATININE FOR GFR 0.74 MG/DL (0.55-1.30); GLOMERULAR FILTRATION RATE > 60.0 (>39); GLUCOSE, FASTING 104 MG/DL (70-100); MB/CK RELATIVE INDEX 3.23 (< OR =4); NT-PRO BNP 322 PG/ML (<450); POTASSIUM SERUM 3.9 MEQ/L (3.5-5.1); SODIUM LEVEL 139 MEQ/L (136-145); TOTAL PROTEIN 5.3 GM/DL (6.4-8.2); TROPONIN I < 0.02 NG/ML (< 0.10)
[2018-01-09] MEDS ORDERED: ISOVUE-370 76% 100ML VIAL (Q9967) As Ordered (17:11)
[2018-01-09] MEDS: AZITHROMYCIN INJ 500 MG, VIAL MATE ADAPTER 1 EACH in D5W 250 ML IV (19:48)
[2018-01-09] MEDS: PANTOPRAZOLE 40MG INJ (PROTONIX) (C9113) IV (21:00)
[2018-01-09] MEDS ORDERED: ACETAMINOPHEN TAB 650MG DOSE (2X325MG) PO (21:00)
[2018-01-09] MEDS: SERTRALINE HCL 25 MG TABLET PO (21:00)
[2018-01-09] MEDS: CEFEPIME HCL 1 GM in D5W MINI-BAG PLUS 50 ML IV (21:00)
[2018-01-09] MEDS: ENOXAPARIN 100MG/1ML SYRINGE (J1650) SC (21:27)
[2018-01-09] MEDS: NS 1,000 ML IV (23:42)
[2018-01-09] MEDS: METOPROLOL SUCC *XL* 25MG TAB (TopROL *XL*) PO (23:43)
[2018-01-10] MEDS: PERCOCET 5MG/325MG TAB PO (00:04)
[2018-01-10] MEDS: CEFEPIME HCL 2 GM in D5W MINI-BAG PLUS 50 ML IV ×3 (04:39→20:46)
[2018-01-10 05:55] LABS: BASO # 0.1 10^3/uL (0.0-0.2); BASO % 0.5 % (0.0-1.0); EOS # 0.3 10^3/uL (0.0-0.50); EOS % 1.2 % (0.0-3.0); HEMATOCRIT 31.1 % (36.0-47.0); HEMOGLOBIN 9.9 g/dl (12.0-15.5); IMMATURE GRANULOCYTE % 2.8 % (0-3.0); LYMPH # 1.5 10^3/uL (1.5-4.5); LYMPH % 6.8 % (24.0-44.0); MEAN CORPUSCULAR HEMOGLOBIN 32.5 pg (27.0-33.0); MEAN CORPUSCULAR HGB CONC 31.8 g/dl (32.0-36.5); MONO # 1.5 10^3/uL (0.0-0.8); MONO % 6.8 % (0.0-5.0); NEUTROPHILS # 17.5 10^3/uL (1.8-7.7); NEUTROPHILS % 81.9 % (36.0-66.0); PLATELET COUNT, AUTOMATED 193 10^3/uL (150-450); RED BLOOD COUNT 3.05 10^6/uL (4.00-5.40); RED CELL DISTRIBUTION WIDTH 21.8 % (11.5-14.5); WHITE BLOOD COUNT 21.4 10^3/uL (4.0-10.0)
[2018-01-10 06:10] LABS: ANION GAP 6 MEQ/L (8-16); BLOOD UREA NITROGEN 14 MG/DL (7-18); CALCIUM LEVEL 8.7 MG/DL (8.8-10.2); CARBON DIOXIDE LEVEL 26 MEQ/L (21-32); CHLORIDE LEVEL 107 MEQ/L (98-107); CREATININE FOR GFR 0.69 MG/DL (0.55-1.30); GLOMERULAR FILTRATION RATE > 60.0 (>39); GLUCOSE, FASTING 108 MG/DL (70-100); POTASSIUM SERUM 3.9 MEQ/L (3.5-5.1); SODIUM LEVEL 139 MEQ/L (136-145)
[2018-01-10] MEDS: NS 1,000 ML IV ×3 (06:59→20:41)
[2018-01-10] MEDS: SERTRALINE HCL 50 MG TAB PO (09:05)
[2018-01-10] MEDS: ENOXAPARIN 40 MG/0.4 ML SYRINGE (J1650) SC (09:05)
[2018-01-10] MEDS ORDERED: ISOVUE-370 76% 100ML VIAL (Q9967) As Ordered (10:22)
[2018-01-10] MEDS ORDERED: MOM 30ML SUSPENSION UDC PO (19:00)
[2018-01-10] MEDS: METOPROLOL SUCC *XL* 25MG TAB (TopROL *XL*) PO (20:41)
[2018-01-10] MEDS: SERTRALINE HCL 25 MG TABLET PO (20:41)
[2018-01-10] MEDS: PANTOPRAZOLE 40MG INJ (PROTONIX) (C9113) IV (20:46)
[2018-01-11] MEDS: CEFEPIME HCL 2 GM in D5W MINI-BAG PLUS 50 ML IV ×2 (03:57→11:35)
[2018-01-11 06:36] LABS: ANION GAP 7 MEQ/L (8-16); BLOOD UREA NITROGEN 11 MG/DL (7-18); CALCIUM LEVEL 8.5 MG/DL (8.8-10.2); CARBON DIOXIDE LEVEL 24 MEQ/L (21-32); CHLORIDE LEVEL 110 MEQ/L (98-107); CREATININE FOR GFR 0.62 MG/DL (0.55-1.30); GLOMERULAR FILTRATION RATE > 60.0 (>39); GLUCOSE, FASTING 98 MG/DL (70-100); SODIUM LEVEL 141 MEQ/L (136-145)
[2018-01-11] MEDS: SERTRALINE HCL 50 MG TAB PO (08:03)
[2018-01-11] MEDS: ENOXAPARIN 40 MG/0.4 ML SYRINGE (J1650) SC (08:03)
[2018-01-11] MEDS: NS 1,000 ML IV (08:10)
[2018-01-11] MEDS: PERCOCET 5MG/325MG TAB PO (11:38)
[2018-01-11] MEDS: SERTRALINE HCL 25 MG TABLET PO (20:35)
[2018-01-11] MEDS: METOPROLOL SUCC *XL* 25MG TAB (TopROL *XL*) PO (20:35)
[2018-01-11] MEDS: SODIUM CHLORIDE 0.9% INJ 10 ML SYR IV (21:16)
[2018-01-11] MEDS: PANTOPRAZOLE 40MG INJ (PROTONIX) (C9113) IV (21:16)
[2018-01-12] MEDS: ENOXAPARIN 40 MG/0.4 ML SYRINGE (J1650) SC (07:28)
[2018-01-12] MEDS: SODIUM CHLORIDE 0.9% INJ 10 ML SYR IV (08:44)
[2018-01-12] MEDS: SERTRALINE HCL 50 MG TAB PO (08:44)
[2018-01-12] MEDS: PERCOCET 5MG/325MG TAB PO (11:59)
== END 2018-01-12 17:25 | disposition home or self-care (01) | DRG 948 ==
LOC: M ED 14:20 → M ED INP 20:59 → M MSPAV 22:38
PROVIDERS: Hospitalist
PROC: 0W9G3ZZ Drainage of Peritoneal Cavity, Percutaneous Approach (ICD-10-PCS; principal; 2018-01-12)
DX: R18.8 Other ascites (principal); C25.9 Malignant neoplasm of pancreas, unspecified; C78.7 Secondary malignant neoplasm of liver and intrahepatic bile duct; C78.01 Secondary malignant neoplasm of right lung; C78.02 Secondary malignant neoplasm of left lung; Z66 Do not resuscitate; I10 Essential (primary) hypertension; M16.12 Unilateral primary osteoarthritis, left hip; D72.829 Elevated white blood cell count, unspecified; K59.00 Constipation, unspecified; R16.1 Splenomegaly, not elsewhere classified; E78.5 Hyperlipidemia, unspecified; K21.9 Gastro-esophageal reflux disease without esophagitis; F32.9 Major depressive disorder, single episode, unspecified; K74.60 Unspecified cirrhosis of liver; Z92.21 Personal history of antineoplastic chemotherapy; Z88.2 Allergy status to sulfonamides; Z88.0 Allergy status to penicillin; Z88.5 Allergy status to narcotic agent